=== PATIENT | male | born 1990 ===

== ENCOUNTER 2017-10-29 17:34 | Emergency (ER) | payer OTHER ==
--- NOTE | 2017-10-29 18:36 | ED PDOC ---
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 Patient reports at work he had to speak loudly for a prolonged period of time on Friday and Friday. He also reports having fever only on Friday. He recently traveled from [place]. He denies any other medical complaints. PMD: None provided. Past Medical History Reviewed: Historical Data, Nursing Documentation, Vital Signs Vital Signs: Last Vital Signs Temp 98.6 F 10/29/17 17:48 Pulse 82 10/29/17 17:48 Resp 16 10/29/17 17:48 BP 107/61 10/29/17 17:48 Pulse Ox 97 10/29/17 18:54 - Medical History PMH: No Chronic Diseases - Surgical History Surgical History: No Surg Hx - Family History Family History: States: Unknown Family Hx - Home Medications Home Medications: Ambulatory Orders Medication Instructions Recorded Amoxicillin/Clavulanate [Augmentin 1 tab PO BID #20 tab 10/29/17 875 MG-125 MG] Lidocaine 2% Viscous 10 ml MM QID #2 bottle 10/29/17 Oseltamivir Phosphate [Tamiflu] 75 mg PO BID #10 capsule 10/29/17 - Allergies Allergies/Adverse Reactions: Allergies Allergy/AdvReac Type Severity Reaction Status Date / Time No Known Allergies Allergy Verified 10/29/17 17:53 Review of Systems ROS Statement: Except As Marked, All Systems Reviewed And Found Negative Constitutional: Negative for: Fever, Chills ENT: Positive for: Throat Pain, Other (voice loss) Physical Exam - Reviewed Nursing Documentation Reviewed: Yes Vital Signs Reviewed: Yes - Physical Exam Appears: Positive for: Well, Non-toxic, No Acute Distress Head Exam: Positive for: ATRAUMATIC, NORMAL INSPECTION, NORMOCEPHALIC Skin: Positive for: Normal Color, Warm, Dry Eye Exam: Positive for: Normal appearance ENT: Positive for: Tonsillar Swelling (Tonsils mildly enlarged b/l), Other ( Uvula centerline no erythema. No abscess). Negative for: Tonsillar Exudate Neck: Positive for: Painless ROM Lymphatic: Positive for: Other (Cervical nodes normal) Neurologic/Psych: Positive for: Alert, Oriented - ECG O2 Sat by Pulse Oximetry: 97 (RA) Pulse Ox Interpretation: Normal Medical Decision Making Medical Decision Making: Initial Impression: Laryngitis and Acute pharyngitis Initial Plan: --Lidocaine 2% Viscous 15 ml PO rx Lidoaine 2% viscous rx augmentin --Reevaluation d/c apap and rx meds follwo up with PMD in three days rest voice fluids ~ Scribe Attestation: Documented by Zackary Braswell, acting as a scribe for Rick Milian PA-C. Provider Scribe Attestation: All medical record entries made by the Scribe were at my direction and personally dictated by me. I have reviewed the chart and agree that the record accurately reflects my personal performance of the history, physical exam, medical decision making, and the department course for this patient. I have also personally directed, reviewed, and agree with the discharge instructions and disposition. Disposition - Clinical Impression Clinical Impression: Laryngitis, Pharyngitis Doctor Will See Patient In The: Office Counseled Patient/Family Regarding: Studies Performed, Diagnosis, Need For Followup, Rx Given - Disposition Disposition: Routine/Home Disposition Time: 19:04 Condition: GOOD Additional Instructions: d/c apap and rx meds follwo up with PMD in three days rest voice fluids rest voice Prescriptions: Amoxicillin/Clavulanate [Augmentin 875 MG-125 MG] 1 tab PO BID #20 tab Lidocaine 2% Viscous 10 ml MM QID #2 bottle Oseltamivir Phosphate [Tamiflu] 75 mg PO BID #10 capsule Instructions: Viral Pharyngitis, Laryngitis, Sore Throat, Adult (DC), Laryngitis (DC) Forms: [employer] (Italian) Print Language: UPPER SORBIAN
[2017-10-30 11:28] VITALS: BP 107/61; PULSE 82; RESP 16; TEMP 98.6; O2SAT 97
== END 2017-10-29 19:29 | disposition home or self-care (01) ==
LOC: H.ER 17:34
DX: J04.0 Acute laryngitis (principal); J02.9 Acute pharyngitis, unspecified